=== PATIENT | female | born 1960 | race Two or more races ===

== ENCOUNTER 2019-04-18 16:53 | Emergency (ER) | payer OTHER ==
[~2019-04-18] VITALS: Ht 165.1 cm; Wt 65.8 kg
[2019-04-18 16:55] VITALS: BP 104/73
--- NOTE | 2019-04-18 16:57 | NUR ---
ED Nurse Note: Pt was BIBA d/t behavioral complaint per pt, she's "hearing voices" but denied harm to self or to others. Pt's VSS, on RA. Placed on bed.
[2019-04-18] MEDS ORDERED: GLUCOSAMINE1000 M1 PO (17:03)
[2019-04-18] MEDS ORDERED: DOCUSATE SODIU100 M2 ORAL (17:03)
[2019-04-18] MEDS ORDERED: ASPIR 8181 MG ORAL (17:03)
[2019-04-18] MEDS ORDERED: CELEBREX100 MG ORAL (17:03)
[2019-04-18] MEDS ORDERED: ATORVASTATIN CA40 MG ORAL (17:03)
[2019-04-18] MEDS ORDERED: CRANBERRY425 MG PO (17:03)
--- NOTE | 2019-04-18 17:14 | NUR ---
ED Nurse Note: X-ray on bedside.
[2019-04-18 17:42] LABS: APPEARANCE,URINE SLIGHTLY CLOUDY; BILIRUBIN, URINE NEGATIVE (NEGATIVE); COLOR,URINE AMBER; GLUCOSE, URINE (UA) NEGATIVE (NEGATIVE); KETONES,URINE 2+ (NEGATIVE); LEUKOCYTE ESTERASE ,URINE 1+ (NEGATIVE); NITRITE,URINE NEGATIVE (NEGATIVE); PH,URINE 6.5 (4.5-8.0); PROTEIN,URINE NEGATIVE (NEGATIVE); UROBILINOGEN,URINE 1 MG/DL (0.0-1.0)
[2019-04-18 17:45] LABS: BASOPHILS % (AUTO) 0.5 % (0.0-2.0); EOSINOPHILS % (AUTO) 0.8 % (0.0-3.0); HEMATOCRIT 41.2 % (37.0-47.0); HEMOGLOBIN 13.2 G/DL (12.0-16.0); LYMPHOCYTES % (AUTO) 23.3 % (20.0-45.0); MEAN CORPUSCULAR VOLUME 92 FL (80-99); NEUTROPHILS % (AUTO) 69.4 % (45.0-75.0); PLATELET COUNT 238 K/UL (150-450); RED CELL DISTRIBUTION WIDTH 12.3 % (11.6-14.8); WHITE BLOOD COUNT 11.5 K/UL (4.8-10.8)
[2019-04-18] MEDS ORDERED: Lidocaine 1% MPF 10mg/ml 5ml INJ ONE (18:15)
[2019-04-18 18:36] LABS: ANION GAP 11 mmol/L (5-15); BLOOD UREA NITROGEN 10 mg/dL (7-18); CALCIUM 8.4 MG/DL (8.5-10.1); CARBON DIOXIDE 28 MMOL/L (21-32); CHLORIDE 101 MMOL/L (98-107); CREATININE 0.7 MG/DL (0.55-1.30); POTASSIUM 3.3 MMOL/L (3.5-5.1); SODIUM 140 MMOL/L (136-145)
[2019-04-18 18:41] LABS: ALANINE AMINOTRANSFERASE 31 U/L (12-78); ALBUMIN 3.5 G/DL (3.4-5.0); ALBUMIN/GLOBULIN RATIO 0.9 (1.0-2.7); ALKALINE PHOSPHATASE 82 U/L (46-116); ASPARTATE AMINO TRANSFERASE 22 U/L (15-37); BILIRUBIN,TOTAL 0.3 MG/DL (0.2-1.0)
--- NOTE | 2019-04-18 18:58 | Emergency Room Report ---
History of Present Illness General Chief Complaint: Behavioral Complaint Source: Patient Present Illness HPI 58-year-old female with history of schizophrenia brought in by paramedics due to not taking her medication for 4 days. Patient reports that she used to be in a psychiatric facility for 1 year however 4 days ago was told that she needs to be transferred to [place] [facility] patient does not know the reason. Patient refused to go. Patient has been on the street since. Has not taken her Seroquel and her other psychiatric medication. Denies any SI and HI at this time. Appears to be oriented however not a good historian. Complains of cough however denies chest pain shortness of breath. Denies drug use, tobacco smoke, alcohol intake. Allergies: Coded Allergies: No Known Allergies (Unverified , 04/18/19) Patient History Past Medical History: see triage record Past Surgical History: unable to obtain Family History: none Last Menstrual Period: N/A Now: No Immunizations: UTD Reviewed Nursing Documentation: PMH: Agreed; PSxH: Agreed Nursing Documentation-PMH Hx Diabetes: Yes History Of Psychiatric Problem: Yes - Bipolar Schizophrenia Review of Systems All Other Systems: negative except mentioned in HPI Physical Exam Vital Signs Date Time Temp Pulse Resp B/P (MAP) Pulse Ox O2 Delivery O2 Flow Rate FiO2 04/18/19 16:45 98.8 91 18 104/73 (83) 97 Room Air Sp02 EP Interpretation: reviewed, normal General Appearance: alert/responsive, no apparent distress, GCS 15, non-toxic Head: atraumatic Eyes: PERRL, lids + conjunctiva normal ENT: hearing intact, no angioedema Neck: supple/symm/no masses, no meningismus Respiratory: effort normal, no rhonchi, no wheezing, chest symmetrical Cardiovascular: regular rate, rhythm, no edema Gastrointestinal: non-tender, no mass Musculoskeletal: gait & station normal, normal ROM, strength & tone normal, non -tender Neurologic: oriented x3, sensory intact, normal speech Psychiatric: mood normal, no suicidal/homicidal ideation, anxious Skin: no rash, well hydrated Lymphatic: normal inspection Medical Decision Making PA Attestation All my diagnosis and treatment plans were reviewed ad discussed with my supervising physician Dr. Pickett Diagnostic Impression: Primary Impression: Schizophrenia ER Course 58-year-old female with history of schizophrenia brought in by paramedics due to not taking her medication for 4 days. Patient reports that she used to be in a psychiatric facility for 1 year however 4 days ago was told that she needs to be transferred to [place] [facility] patient does not know the reason. Patient refused to go. Patient has been on the street since. Has not taken her Seroquel and her other psychiatric medication. Denies any SI and HI at this time. Appears to be oriented however not a good historian. Complains of cough however denies chest pain shortness of breath. Denies drug use, tobacco smoke, alcohol intake. Ddx considered but are not limited to: generalized anxiety disorder, panic attack, depression with psychotic feature, bipolar disorder, drug overdose Vital signs: are WNL, pt. is afebrile H&PE are most consistent with: Schizophrenia ORDERS: Psychiatric order set ED INTERVENTIONS: Rocephin Patient is medically cleared Patient to be transferred to a psychiatric hospital, stable EKG Diagnostic Results Rate: normal Rhythm: NSR ST Segments: no acute changes Other Impression No acute ST changes Chest X-Ray Diagnostic Results Chest X-Ray Diagnostic Results : Chest X-Ray Ordered: Yes # of Views/Limited/Complete: 1 View Indication: Other - Cough Interpretation: no consolidation, no effusion, no pneumothorax Impression: No acute disease Electronically Signed by: Prabha Ortiz PA-C Last Vital Signs Date Time Temp Pulse Resp B/P (MAP) Pulse Ox O2 Delivery O2 Flow Rate FiO2 04/18/19 16:55 91 18 Room Air 04/18/19 16:55 98.8 104/73 97 Disposition: XFER TO PSYCH HOSP/UNIT Condition: Stable Referrals: NON PHYSICIAN (PCP) Prabha Aldana Apr 18, 2019 18:58
--- NOTE | 2019-04-18 19:03 | NUR ---
HAND-OFF: Report given to LOY Frey.
[2019-04-18 19:07] VITALS: BP 111/69
--- NOTE | 2019-04-18 19:07 | NUR ---
ED Nurse Note: Recieved report from Taniya GRANADO.
[2019-04-18 21:15] VITALS: BP 115/69
--- NOTE | 2019-04-18 21:15 | NUR ---
ED Nurse Note: Pt seen sleeping in bed. Not in any distress. VSS. Will cont to monitor.
[2019-04-19 00:15] VITALS: BP 122/74
--- NOTE | 2019-04-19 00:15 | NUR ---
ED Nurse Note: Pt requested for sandwich. Snacks provided. Not in any distress. Will cont to monitor.
[2019-04-19 04:10] VITALS: BP 109/90
--- NOTE | 2019-04-19 04:10 | NUR ---
ED Nurse Note: Pt seen sleeping in bed. Safety and comfort provided. Not in any distress at this time.
[2019-04-19 06:10] VITALS: BP 117/68
--- NOTE | 2019-04-19 06:10 | NUR ---
ED Nurse Note: Pt awake, alert and oriented, verbally responsive. Breathing even and unlabored. VSS.
--- NOTE | 2019-04-19 07:07 | NUR ---
HAND-OFF: Report given to Janae GRANADO. Endorsed plan of care.
--- NOTE | 2019-04-19 08:00 | NUR ---
ED Nurse Note: pt sleeping in room, easily awakens. eddie c/o at this time. awaits further dispo. continues to deny SI/HI
--- NOTE | 2019-04-19 08:38 | NUR ---
ED Nurse Note: pt incontinent on self. states she was sleepingand didnt wake up to void. new pants offered and given pt to clean linens amb steady gait. relates she has been on streets x 4 days as she was kicked out of [facility] because she was noncompliant with taking seroquel. pt relates she would go back there if they will accept her. pt denies hallucinations at this time. cooperative with rn.
[2019-04-19] MEDS ORDERED: QUETIAPINE FUMA25 MG ORAL (08:41)
--- NOTE | 2019-04-19 08:48 | NUR ---
ED Nurse Note: attempted to call [facility] no answer at phone [phone]
--- NOTE | 2019-04-19 08:53 | NUR ---
ED Nurse Note: pt relates address is [address]
--- NOTE | 2019-04-19 08:54 | NUR ---
ED Nurse Note: pt relates she doesnt recall phone number
--- NOTE | 2019-04-19 09:23 | NUR ---
ED Nurse Note:pt given po intake
--- NOTE | 2019-04-19 13:11 | NUR ---
ED Nurse Note: Provided sandwiches/juice. Patient ambulating with steady gait.
--- NOTE | 2019-04-19 14:09 | NUR ---
ED Nurse Note: pt aware of plan for placement and transportation en route approx eta 1500
--- NOTE | 2019-04-19 14:22 | Diagnostic Imaging Report ---
Indication: Cough Comparison: None A single view chest radiograph was obtained. Findings: Cardiomediastinal appearance is within normal limits for age. The lungs are clear. Pulmonary vascularity is appropriate. The diaphragmatic contour is smooth and costophrenic angles are sharp. No pleural effusions are identified. The bones are osteopenic. Impression: No acute findings Note: Portions of patient's bra and zipper/clothes obscure underlying anatomy. Study is therefore by limited
--- NOTE | 2019-04-19 15:56 | NUR ---
ED Nurse Note: transport here for pt. pt remains cooperative. iv site dc'd
[2019-04-19 15:58] VITALS: BP 96/65
--- NOTE | 2019-04-19 16:27 | NUR ---
ED Nurse Note: pt is medically cleared
[2019-04-19 16:28] VITALS: BP 95/65
--- NOTE | 2019-04-19 16:34 | NUR ---
ED Nurse Note: pt report to Margi at [facility], accepting pt. report given to s crew also. pt cooperative with ems upon dc
== END 2019-04-19 16:35 ==
LOC: EDBD 16:53 → EDSEX 16:53 → EMR 18:52
DX: F20.9 Schizophrenia, unspecified (principal); E11.9 Type 2 diabetes mellitus without complications
CPT/HCPCS: 36415; 71045; 80053; 80307; 81003; 84484; 85025; 93005; 96372; 96374; G0480; G0481; J0696; Z7502; 99284